=== PATIENT | female | born 1985 | race Asian ===

== ENCOUNTER 2017-10-05 18:06 | Day surgery (SDC) | payer OTHER ==
[~2017-10-05] VITALS: Ht 157.5 cm; Wt 50.6 kg
[2017-10-05 18:29] VITALS: BP 110/118
[2017-10-05 20:34] LABS: BASOPHILS % (AUTO) 0.3 % (0.0-2.0); EOSINOPHILS % (AUTO) 0.1 % (0.0-4.0); HEMATOCRIT 40.6 % (36-48); HEMOGLOBIN 13.5 g/dL (12.0-16.0); LYMPHOCYTES # (AUTO) 1.4 K/uL (2.5-16.5); LYMPHOCYTES % (AUTO) 15.1 % (20.5-51.1); MEAN CORPUSCULAR HEMOGLOBIN 31 pg (27-31); MEAN CORPUSCULAR HGB CONC 33 g/dL (33-37); MEAN CORPUSCULAR VOLUME 93.1 fL (80-94); MONOCYTES # (AUTO) 0.5 K/uL (0.8-1.0); MONOCYTES % (AUTO) 5.3 % (1.7-9.3); NEUTROPHILS # (AUTO) 7.3 K/uL (1.8-7.7); NEUTROPHILS % (AUTO) 79.2 % (42.2-75.2); PLATELET COUNT (AUTO) 217 K/uL (140-450); RED BLOOD CELL COUNT(AUTO) 4.36 MIL/uL (4.20-5.40); RED CELL DISTRIBUTION WIDTH 13.1 % (11.6-13.7); WHITE BLOOD COUNT (AUTO) 9.2 K/uL (4.8-10.8)
[2017-10-05 20:44] LABS: APPEARANCE,URINE CLEAR (CLEAR); BILIRUBIN,URINE 1+ (NEGATIVE); BLOOD, URINE NEGATIVE (NEGATIVE); COLOR,URINE YELLOW (YELLOW); LEUKOCYTE ESTERASE ,URINE NEGATIVE (NEGATIVE); NITRITE, URINE NEGATIVE (NEGATIVE); UGLUCOSE NEGATIVE (NEGATIVE)
[2017-10-05] MEDS ORDERED: PROPOFOL 200 MG/20 ML VIAL IV ONE (21:50)
[2017-10-05] MEDS ORDERED: LACTATED RINGERS 1,000 ML IV SCH (21:51)
[2017-10-05] MEDS ORDERED: MIDAZOLAM 2 MG/2 ML VIAL ONE (21:52)
[2017-10-05] MEDS ORDERED: fentaNYL 0.05 MG/ML VIAL ONE (21:52)
[2017-10-05] MEDS ORDERED: MEPERIDINE 25 MG/ML SYR ONE (21:52)
[2017-10-05] MEDS ORDERED: HYDROmorphone 1 MG/ML AMP IVP PRN (21:55)
[2017-10-05] MEDS ORDERED: diphenhydrAMINE 50 MG/ML VIAL IVP PRN (21:55)
[2017-10-05] MEDS ORDERED: ONDANSETRON 4 MG/2 ML VIAL IVP PRN ×2 (21:55→22:10)
[2017-10-05] MEDS ORDERED: MEPERIDINE 25 MG/ML SYR IVP PRN (21:55)
[2017-10-05] MEDS ORDERED: IBUPROFEN 800 MG TAB PO PRN (22:10)
[2017-10-05] MEDS ORDERED: ACETAMINOPHEN/CODEINE 300/30MG 1 TAB PO PRN (22:10)
[2017-10-05] MEDS ORDERED: MORPHINE SULFATE 4 MG/ML SYR IM/IVP PRN (22:10)
[2017-10-06 00:49] VITALS: BP 106/72
== END 2017-10-06 01:10 | disposition home or self-care (01) ==
LOC: MED 18:06 → MMU 10-06 00:16 → MOR 10-06 00:16 → MTU 10-06 00:25 → MOR 10-06 01:10
PROVIDERS: ATTEND Obstetrics & Gynecology
DX: O02.1 Missed abortion (principal)
CPT/HCPCS: 36415; 59820; 81003; 85025; J2175; J2250; J2704; J3010; J7120